=== PATIENT | male | born 1995 | race Hispanic/Latino ===

== ENCOUNTER 2022-11-28 00:58 | Emergency (ER) | payer BC, OTHER ==
--- OUTSIDE RECORDS SUMMARY | 2022-11-28 01:02 | XMS REPORT | Continuity of Care Document ---
:1995 Author Organization [facility] t Address [address] [place] [address] Care Team Providers Name Role Phone Arnold Bryant Attending Clinician Unavailable MAGNO_LUCILLE Attending Clinician Unavailable URIEL Admitting Clinician Unavailable Problems This patient has no known problems. Allergies, Adverse Reactions, Alerts This patient has no known allergies or adverse reactions. Medications This patient has no known medications. Procedures This patient has no known procedures. Encounters Start End Encounter Admission Attending Care Care Encounter Source Date/Time Date/Time Type Type Clinicians Facility Department ID 2022-10-16 Outpatient Bryant, [facility] [id number] Common 08:05:00 Arnold [facility] [facility] 2021-11-20 Outpatient Bryant, [facility] [id number] Common 14:20:24 Arnold [address] [facility] 2021-11-20 Outpatient Bryant, [facility] [id number] Common 13:26:24 Arnold [facility] [facility] 2021-11-20 Outpatient Brynat, [facility] [id number] Common 11:35:07 Arnold [address] [facility] 2021-11-20 Outpatient Bryant, [facility] [id number] Common 11:34:54 Arnold [address] [facility] 2021-11-20 Outpatient Bryant, [facility] [id number] Common 11:31:30 Arnold [facility] [facility] 2022-05-07 2022-05-07 Outpatient MAGNO_JOSEPH [facility] [address] 05:52:00 05:52:[address] [facility] Program Results This patient has no known results.
[2022-11-28] MEDS ORDERED: ONDANSETRON 4 MG/2 ML VIAL ONE (01:44)
[2022-11-28] MEDS ORDERED: NA CHLORIDE 0.9% 1,000 ML ONE (01:44)
[2022-11-28 02:15] LABS: Absolute Lymphocytes (CBC) 1.9 K/uL (0.7-4.9); Hematocrit 45.2 % (39.6-49.0); Lymphocytes % 15.4 % (15.3-44.8); MCV 86.3 fL (80-100); MPV 7.9 fL (7.6-11.3); RBC Red Blood Cell Count 5.24 M/uL (4.33-5.43)
[2022-11-28 02:40] LABS: Albumin 4.1 g/dL (3.4-5.0); Bilirubin Total 0.4 mg/dL (0.2-1.0); Magnesium 2.3 mg/dL (1.6-2.4); Potassium 4.1 mmol/L (3.5-5.1); Protein, Total 8.2 g/dL (6.4-8.2); Troponin High Sensitivity 6.5 pg/mL (<58.9)
--- NOTE | 2022-11-28 02:59 | EDPHYS ---
Physician Documentation [facility] Name: Roberto Delatorre Age: 26 yrs Sex: Male : 1995 Arrival Date: 11/28/2022 Time: 01:15 Bed 20 Private MD: ED Physician Agustin Rodriges HPI: 11/28 02:22 This 26 yrs old Male presents to ER via EMS with complaints of Fall Injury. rt 02:22 Patient presents to the ED with a syncopal event. Patient states that he was not rt feeling well earlier today, feeling off. He states that he felt that his heart was beating fast. He had nausea. The patient woke up to take a shower, he had a syncopal event in the shower, had a loss of consciousness of about 30 seconds. The patient states that he does not know if he hit his head or not but did have some mild head pain is now resolved. He denies other acute complaints at this time including chest pain. Symptoms are moderate in severity, no other aggravating or alleviating factors.. Historical: - Allergies: 01:21 No Known Allergies; ha1 - Home Meds: 01:21 Cyclobenzaprine Oral [Active]; Fioricet Oral [Active]; Hydroxyzine Oral [Active]; ha1 Lexapro Oral [Active]; sertraline oral [Active]; - PMHx: 01:21 Seizure; Anxiety; ha1 - Immunization history:: Adult Immunizations up to date. - Social history:: Smoking status: unknown. - Immunization history: Last tetanus immunization: unknown. - Family history:: not pertinent. ROS: 02:22 Constitutional: Negative for fever, chills, and weight loss, Cardiovascular: Negative rt for chest pain, palpitations, and edema, Respiratory: Negative for shortness of breath, cough, wheezing, and pleuritic chest pain, Abdomen/GI: Negative for abdominal pain, nausea, vomiting, diarrhea, and constipation, MS/Extremity: Negative for injury and deformity, Skin: Negative for injury, rash, and discoloration, Psych: Negative for depression, anxiety, suicide ideation, homicidal ideation, and hallucinations. 02:22 Abdomen/GI: Positive for vomiting, Negative for abdominal pain. 02:22 Neuro: Positive for syncope, Negative for altered mental status. Exam: 02:22 Constitutional: This is a well developed, well nourished patient who is awake, alert, rt and in no acute distress. Head/Face: Normocephalic, atraumatic. Chest/axilla: Normal chest wall appearance and motion. Nontender with no deformity. No lesions are appreciated. Cardiovascular: Regular rate and rhythm with a normal S1 and S2. No gallops, murmurs, or rubs. Normal PMI, no JVD. No pulse deficits. Respiratory: Lungs have equal breath sounds bilaterally, clear to auscultation and percussion. No rales, rhonchi or wheezes noted. No increased work of breathing, no retractions or nasal flaring. Abdomen/GI: Soft, non-tender, with normal bowel sounds. No distension or tympany. No guarding or rebound. No evidence of tenderness throughout. Skin: Warm, dry with normal turgor. Normal color with no rashes, no lesions, and no evidence of cellulitis. MS/ Extremity: Pulses equal, no cyanosis. Neurovascular intact. Full, normal range of motion. Neuro: Awake and alert, GCS 15, oriented to person, place, time, and situation. Cranial nerves II-XII grossly intact. Motor strength 5/5 in all extremities. Sensory grossly intact. Cerebellar exam normal. Normal gait. Psych: Awake, alert, with orientation to person, place and time. Behavior, mood, and affect are within normal limits. 03:00 ECG was reviewed by the Attending Physician. rt Vital Signs: 01:15 BP 114 / 82; Pulse 97; Resp 19 S; Pulse Ox 98% on R/A; ha1 01:16 BP 114 / 82; Pulse 97; Resp 19; Temp 98.3; Pulse Ox 98% on R/A; Weight 81.19 kg; Height ha1 5 ft. 6 in. (167.64 cm); Pain 3/10; 02:15 BP 118 / 75; Pulse 98; Resp 17 S; Pulse Ox 98% on R/A; ha1 03:00 BP 123 / 77; Pulse 87; Resp 18 S; Pulse Ox 97% on R/A; ha1 01:16 Body Mass Index 28.89 (81.19 kg, 167.64 cm) ha1 [place] Coma Score: 01:15 Eye Response: spontaneous(4). Verbal Response: oriented(5). Motor Response: obeys ha1 commands(6). Total: 15. Trauma Score (Adult): 01:15 Eye Response: spontaneous(1); Verbal Response: oriented(1); Motor Response: obeys ha1 commands(2); Systolic BP: > 89 mm Hg(4); Respiratory Rate: 10 to 29 per min(4); [place] Score: 15; Trauma Score: 12 MDM: 01:15 Patient medically screened. rt 03:00 Differential diagnosis: closed head injury, Syncope, seizure. Data reviewed: vital rt signs, nurses notes, lab test result(s), EKG, radiologic studies. I considered the following discharge prescriptions or medication management in the emergency department Medications were administered in the Emergency Department. See MAR. Independent interpretation of the following test(s) in the Emergency Department CT Scan: My interpretation is No head bleed. Care significantly affected by the following chronic conditions: Seizure disorder. Response to treatment: the patient's symptoms have markedly improved after treatment. 11/28 01:25 Order name: CBC with Diff; Complete Time: 02:21 rt 11/28 01:25 Order name: CMP; Complete Time: 02:50 rt 11/28 01:25 Order name: Troponin High Sensitivity; Complete Time: 02:50 rt 11/28 01:25 Order name: Magnesium; Complete Time: 02:50 rt 11/28 01:25 Order name: CT Head Brain wo Cont rt 11/28 01:25 Order name: Chest Single View XRAY rt 11/28 01:25 Order name: EKG; Complete Time: 01:26 rt 11/28 01:25 Order name: EKG - Nurse/Tech; Complete Time: 02:46 rt EC:00 Rate is 90 beats/min. Rhythm is regular, Normal Sinus Rhythm with No ectopy. QRS Lexa rt is Normal. ND interval is normal. QRS interval is normal. QT interval is normal. No Q waves. T waves are Normal. No ST changes noted. Interpreted by me. Administered Medications: 01:45 Drug: NS 0.9% 1000 ml Route: IV; Rate: 1 bolus; Site: right antecubital; ha1 03:00 Follow up: Response: No adverse reaction; IV Status: Completed infusion; IV Intake: ha1 1000ml 01:46 Drug: Zofran (Ondansetron) 4 mg Route: IVP; Site: right antecubital; ha1 02:00 Follow up: Response: No adverse reaction; Nausea is decreased ha1 Disposition Summary: 11/28/22 02:58 Discharge Ordered Location: Home rt Problem: new rt Symptoms: have improved rt Condition: Stable rt Diagnosis - Syncope rt - Unspecified injury of head, initial encounter rt Followup: rt - With: Private Physician - When: 2 - 3 days - Reason: Discharge Instructions: - Discharge Summary Sheet rt - Syncope rt Forms: - Medication Reconciliation Form rt - Thank You Letter rt - Antibiotic Education rt - Prescription Opioid Use rt Signatures: Dispatcher [employer] Elayne Vasquez RN RN ha1 Agustin Rodriges MD MD rt Corrections: (The following items were deleted from the chart) 01:24 01:21 PMHx: None; ha1 ha1
--- NOTE | 2022-11-28 02:59 | ER ---
Nurse's Notes [facility] Name: Roberto Delatorre Age: 26 yrs Sex: Male : 1995 Arrival Date: 11/28/2022 Time: 01:15 Bed 20 Private MD: Diagnosis: Syncope;Unspecified injury of head, initial encounter Presentation: 11/28 01:15 Care prior to arrival: None. Mechanism of Injury: Fall bathtub. Trauma event details: ha1 Injury occurred: November 28, 2022. 01:16 Chief complaint: EMS states: his girl friend called because he fell while in the 1 bathtub. girl friend reports that he loss consciousness for few minutes. he reports felling nausea and no recollection of event. Coronavirus screen: Vaccine status: Patient reports being unvaccinated. Ebola Screen: No symptoms or risks identified at this time. Initial Sepsis Screen: Does the patient meet any 2 criteria? No. Patient's initial sepsis screen is negative. Does the patient have a suspected source of infection? No. Patient's initial sepsis screen is negative. Risk Assessment: Do you want to hurt yourself or someone else? Patient reports no desire to harm self or others. Onset of symptoms was November 28, 2022. 01:16 Method Of Arrival: EMS: [facility] 01:16 Acuity: ANNAMARIE 3 1 Triage Assessment: 01:15 General: Appears comfortable, Behavior is calm, cooperative. Pain: Complains of pain in ha1 head Pain does not radiate. Pain currently is 3 out of 10 on a pain scale. Quality of pain is described as pressure, Pain began 3 hours ago. Is continuous. EENT: No signs and/or symptoms were reported regarding the EENT system. Neuro: Level of Consciousness is awake, alert, obeys commands, Oriented to person, place, time, situation. Cardiovascular: Capillary refill < 3 seconds Patient's skin is warm and dry. Respiratory: Airway is patent Respiratory effort is even, unlabored, Respiratory pattern is regular, symmetrical. GI: Abdomen is flat, non-distended, Bowel sounds present X 4 quads. Reports nausea. : No signs and/or symptoms were reported regarding the genitourinary system. Derm: Skin is pink, warm \T\ dry. Musculoskeletal: Circulation, motion, and sensation intact. Range of motion: intact in all extremities. 01:15 Injury Description: Head injury sustained to right samaritan is closed, had loss of ha1 consciousness. Trauma Activation: Physician: ED Physician; Name: Zahira; Notified At: ; Arrived At: Physician: General Surgeon; Name: ; Notified At: ; Arrived At: Physician: Radiology; Name: ; Notified At: ; Arrived At: Physician: Respiratory; Name: ; Notified At: ; Arrived At: Physician: Lab; Name: ; Notified At: ; Arrived At: Historical: - Allergies: 01:21 No Known Allergies; ha1 - Home Meds: :21 Cyclobenzaprine Oral [Active]; Fioricet Oral [Active]; Hydroxyzine Oral [Active]; ha1 Lexapro Oral [Active]; sertraline oral [Active]; - PMHx: : Seizure; Anxiety; ha1 - Immunization history:: Adult Immunizations up to date. - Social history:: Smoking status: unknown. - Immunization history: Last tetanus immunization: unknown. - Family history:: not pertinent. Screenin:15 [facility] ED Fall Risk Assessment (Adult) History of falling in the last 3 months, ha1 including since admission No falls in past 3 months (0 pts) Confusion or Disorientation No (0 pts) Intoxicated or Sedated No (0 pts) Impaired Gait No (0 pts) Mobility Assist Device Used No (0 pt) Altered Elimination No (0 pt) Score/Fall Risk Level 0 - 2 = Low Risk Oriented to surroundings, Maintained a safe environment, Educated pt \T\ family on fall prevention, incl call for assistance when getting out of bed, Hourly rounding (assess needs \T\ fall precautionary measures) done. Abuse screen: Denies threats or abuse. Denies injuries from another. Nutritional screening: No deficits noted. Tuberculosis screening: No symptoms or risk factors identified. Primary Survey: 01:15 NO uncontrolled hemorrhage observed. Breathing/Chest: Respiratory effort: spontaneous, ha1 Breath sounds: clear, bilaterally. Circulation: No external hemorrhage present. Regular and strong central pulse, skin warm/dry/normal color. Disability Pupils are equal, round, reactive to light and accommodation. Client is alert. Exposure/Environment: All clothing and personal items were removed. Forensic evidence collection is not deemed to be indicated at this time. Items placed in patient belonging bag. 02:00 Reassessment Breathing: Spontaneous respiratory effort, equal unlabored respirations, ha1 breath sounds clear bilaterally, regular pattern with symmetrical chest rise and fall. Assessment: 01:15 Reassessment: see triage assessment. ha1 01:22 Reassessment: going to CT. ha1 01:34 Reassessment: Patient and/or family updated on plan of care and expected duration. Pain ha1 level reassessed. Patient is alert, oriented x 3, equal unlabored respirations, skin warm/dry/pink. back from CT. Vital Signs: 01:15 BP 114 / 82; Pulse 97; Resp 19 S; Pulse Ox 98% on R/A; ha1 01:16 BP 114 / 82; Pulse 97; Resp 19; Temp 98.3; Pulse Ox 98% on R/A; Weight 81.19 kg; Height ha1 5 ft. 6 in. (167.64 cm); Pain 3/10; 02:15 BP 118 / 75; Pulse 98; Resp 17 S; Pulse Ox 98% on R/A; ha1 03:00 BP 123 / 77; Pulse 87; Resp 18 S; Pulse Ox 97% on R/A; ha1 01:16 Body Mass Index 28.89 (81.19 kg, 167.64 cm) ha1 [place] Coma Score: 01:15 Eye Response: spontaneous(4). Verbal Response: oriented(5). Motor Response: obeys ha1 commands(6). Total: 15. Trauma Score (Adult): 01:15 Eye Response: spontaneous(1); Verbal Response: oriented(1); Motor Response: obeys ha1 commands(2); Systolic BP: > 89 mm Hg(4); Respiratory Rate: 10 to 29 per min(4); [place] Score: 15; Trauma Score: 12 ED Course: 01:15 Patient arrived in ED. ha1 01:15 Agustin Rodriges MD is Attending Physician. rt 01:15 Patient has correct armband on for positive identification. Placed in gown. Bed in low ha1 position. Call light in reach. Side rails up X 1. Adult w/ patient. 01:15 Patient maintains SpO2 saturation greater than 95% on room air. ha1 01:16 Elayne Bullock RN is Primary Nurse. ha1 01:21 Triage completed. ha1 01:29 Arm band placed on right wrist. ha1 01:31 Thermoregulation: warm blanket given to patient. ha1 01:40 Inserted saline lock: 20 gauge in right antecubital area, using aseptic technique. ha1 Blood collected. 01:49 CT Head Brain wo Cont In Process Unspecified. EDMS 01:59 Magnesium Sent. ha1 01:59 Troponin High Sensitivity Sent. ha1 01:59 CMP Sent. ha1 01:59 CBC with Diff Sent. ha1 02:15 Chest Single View XRAY In Process Unspecified. EDMS 03:18 No provider procedures requiring assistance completed. IV discontinued, intact, ha1 bleeding controlled, No redness/swelling at site. Pressure dressing applied. Administered Medications: 01:45 Drug: NS 0.9% 1000 ml Route: IV; Rate: 1 bolus; Site: right antecubital; ha1 03:00 Follow up: Response: No adverse reaction; IV Status: Completed infusion; IV Intake: ha1 1000ml 01:46 Drug: Zofran (Ondansetron) 4 mg Route: IVP; Site: right antecubital; ha1 02:00 Follow up: Response: No adverse reaction; Nausea is decreased ha1 Medication: 03:18 VIS not applicable for this client. ha1 Intake: 03:00 IV: 1000ml; Total: 1000ml. ha1 03:22 IV: 1000ml (IV Fluid); Total: 2000ml. ha1 Output: 03:22 Urine: 220ml (Voided); Total: 220ml. ha1 Outcome: 02:58 Discharge ordered by MD. rt 03:19 Discharged to home ambulatory, with family. ha1 03:19 Condition: stable 03:19 Discharge instructions given to patient, family, Instructed on discharge instructions, follow up and referral plans. Demonstrated understanding of instructions, follow-up care. 03:19 Patient's length of stay in the Emergency Department was greater than 2 hours. ha1 03:26 Patient left the ED. ha1 Signatures: Dispatcher [employer] Elayne Vasquez RN RN ha1 Agustin Rodriges MD MD rt Corrections: (The following items were deleted from the chart) 01:24 01:21 PMHx: None; ha1 ha1
[2022-11-28 03:32] VITALS: TEMP 98.3
[2022-11-28 03:34] VITALS: BP 123/77; O2SAT 97
--- NOTE | 2022-11-28 15:13 | RAD REPORT ---
EXAM DESCRIPTION: Head Brain Wo Cont CLINICAL HISTORY: 26 years Male head trauma COMPARISON: None TECHNIQUE: Contiguous axial images of the brain were obtained without the administration of intraven ous contrast.This exam was performed according to our departmental dose-optimization program which in cludes use of Automated Exposure Control, adjustment of the mA and/or kV according to patient size an d/or use of iterative reconstruction technique. DLP: 866 mGy*cm FINDINGS: Brain: No acute intracranial hemorrhage. No extra-axial collection. No mass effect or jin iation. Ventricles: Within normal limits in size. Globes and orbits: No acute abnormality. Bones: No acute osseous finding Paranasal sinuses: Paranasal sinuses are clear. Mastoid air cells: Well pneumatized. Soft tissues: Within normal limits IMPRESSION: No acute intracranial abnormality. Electronically signed by: Ken Jimenez DO 11/28/2022 1:54 AM RESEARCH ASSISTANT Due to temporary technical issues with the PACS/Fluency reporting system, reports are being signed by the in house radiologists without review as a courtesy to insure prompt reporting. The interpreting radiologist is fully responsible for the content of the report.
--- NOTE | 2022-11-28 15:23 | RAD REPORT ---
EXAM DESCRIPTION: Chest Single View CLINICAL HISTORY: 26 years Male syncope COMPARISON: None FINDINGS: Lung volumes diminished. Bronchovascular crowding. Cardiac silhouette is normal. No pneumothorax. No large pleural effusion. No focal consolidation. Minimal right basilar reticular opacities, likely atelectasis. No acute bony finding. IMPRESSION: 1. No focal consolidation. 2. Minimal right basilar reticular opacities, likely atelectasis. Can pursue short-term follow-up t o assess for interval change. Electronically signed by: Clarisa Moon MD 11/28/2022 2:19 AM SPECIALTY COOK Due to temporary technical issues with the PACS/Fluency reporting system, reports are being signed by the in house radiologists without review as a courtesy to insure prompt reporting. The interpreting radiologist is fully responsible for the content of the report.
== END 2022-11-28 03:26 | disposition home or self-care (01) ==
LOC: ER 00:58
DX: R55 Syncope and collapse (principal); S09.90XA Unspecified injury of head, initial encounter; R11.10 Vomiting, unspecified; F41.9 Anxiety disorder, unspecified
CPT/HCPCS: 96361; 85025; 36415; 83735; 84484; 80053; 70450; 71045; 96374; 99284; J7030; J2405; 93005

== ENCOUNTER 2024-07-06 11:03 | Emergency (ER) | payer BC ==
--- OUTSIDE RECORDS SUMMARY | 2024-07-06 11:06 | XMS REPORT | Continuity of Care Document ---
Author Name Unknown Address [address] [id number] [facility] [address] [place] [address] Care Team Providers Care Tank Furnace Operator Name Role Phone Arnold Bryant Attending Clinician Unavailable AMBKEVIN_LUCILLE Attending Clinician Unavailable AMBREEN_LUCILLE Admitting Clinician Unavailable Encounters Start Date/Time End Date/Time Encounter Type Admission Type Attending Clinicians Care Facility Care Department Encounter ID Source 2022-10-16 08:05[id number] [facility] 2021-11-20 14:20:24 [facility] [id number] [facility] 2021-11-20 13:26:24 Outpatient Arnold Bryant [facility] [id number] [facility] 2021-11-20 11:35:07 Outpatient Arnold Bryant [facility] [id number] [facility] 2021-11-20 11:34:54 [facility] [id number] [facility] 2021-11-20 11:31:30 [facility] [id number] [facility] 2022-05-07 05:52:00 2022-05-07 05:52:00 Outpatient AMBREEN_JOSEPH JEONG MOSHANIQUA [facility] [id number] [place] [address] [facility]
[2024-07-06] MEDS ORDERED: IBUPROFEN 400 MG TAB ONE (12:17)
--- NOTE | 2024-07-06 13:53 | RAD REPORT ---
EXAM DESCRIPTION: RAD - Foot Left 3 View - 07/06/2024 1:34 pm CLINICAL HISTORY: Left Foot pain FINDINGS: Mildly to moderately displaced oblique fracture fifth proximal phalanx No dislocation is seen
[2024-07-06] MEDS ORDERED: HYDROCODONE/APAP 5/325 MG TAB ONE (14:05)
--- NOTE | 2024-07-06 14:36 | EDPHYS ---
Physician Documentation [facility] Name: Roberto Delatorre Age: 28 yrs Sex: Male : 1995 Arrival Date: 07/06/2024 Time: 11:03 Bed DX2 Private MD: ED Physician Melinda Aceves HPI: 07/06 11:59 This 28 yrs old Male presents to ER via Wheelchair with complaints of Toe sd2 Injury. 11:59 28-year-old male presents with chief complaint of left pinky toe injury. He reports he sd2 was trying to jump over a 2 foot wall in between his living and dining room area when he smashed the area into the wall. He reports pain to the area. No obvious deformity or swelling that he has noted so far. No medication taken prior to arrival.. Historical: - Allergies: 11:31 No Known Allergies; iw - PMHx: 11:24 Anxiety; Seizure; iw - PSHx: 11:31 None; iw - Immunization history:: Adult Immunizations not up to date. - Infectious Disease History:: Denies. - Social history:: Smoking status: Patient denies any tobacco usage or history of. ROS: 11:59 Constitutional: Negative for fever, chills, and weight loss, MS/Extremity: Positive for sd2 injury and negative for deformity, Skin: Negative for injury, rash, and discoloration, Neuro: Negative for headache, numbness and tingling. Exam: 11:59 Constitutional: This is a well developed, well nourished patient who is awake, alert, sd2 and in no acute distress. Head/Face: Normocephalic, atraumatic. Skin: Warm, dry with normal turgor. Normal color with no rashes, no lesions, and no evidence of cellulitis. MS/ Extremity: Pulses equal, no cyanosis. Neurovascular intact. Full, normal range of motion aside from limited ROM of L 5th digit 2/2 pain, TTP of L 5th digit and metatarsal area, no obvious deformity or swelling Vital Signs: 11:32 Resp 16; Temp 97.2; Weight 83.91 kg; Height 5 ft. 6 in. ; Pain 5/10; iw 11:58 BP 131 / 81; Pulse 74; Pulse Ox 100% on R/A; iw 11:32 Body Mass Index 29.86 (83.91 kg, 167.64 cm) iw 11:32 Pain Scale: Adult iw MDM: 11:59 Differential Diagnosis fracture, contusion, dislocation among others. Data reviewed: sd2 vital signs, nurses notes, radiologic studies. I considered the following discharge prescriptions or medication management in the emergency department Medications were administered in the Emergency Department. See DEC. 12:15 Patient medically screened. sd2 14:34 Counseling: I had a detailed discussion with the patient and/or guardian regarding the sd2 historical points, exam findings, and any diagnostic results supporting the discharge/admit diagnosis, radiology results, the need for outpatient follow up, to return to the emergency department if symptoms worsen or persist or if there are any questions or concerns that arise at home. Response to treatment: the patient's symptoms have markedly improved after treatment. ED course: Fracture present. Pt had relocated the toe back into better alignment already since the x-ray was performed by accident. Therefore, a reduction was not performed. Toe bre taped and pt given ortho shoe and crutches with plan for follow up. Verbalizes understanding of discharge plan and strict return precautions. . 07/06 11:59 Order name: XRAY Foot LEFT 3 View; Complete Time: 13:55 sd2 07/06 11:59 Order name: Ice pack; Complete Time: 14:43 sd2 07/06 13:56 Order name: Ortho shoe; Complete Time: 14:43 sd2 07/06 14:02 Order name: Crutches; Complete Time: 14:43 sd2 Administered Medications: 12:38 Drug: Ibuprofen PO 800 mg PO once Route: PO; iw 15:12 Follow up: Response: No adverse reaction; Pain is decreased ll1 14:07 Drug: HYDROcodone-acetaminophen PO 5 mg-325 mg 1 tabs PO once {Note: pain 3/10 RASS 0.} ll1 Route: PO; 15:12 Follow up: Response: No adverse reaction; Pain is decreased; RASS: Alert and Calm (0) ll1 Disposition Summary: 07/06/24 14:36 Discharge Ordered Problem: new sd2 Symptoms: have improved sd2 Condition: Stable sd2 Diagnosis - Closed fracture of left fifth toe, initial encounter sd2 Followup: sd2 - With: Private Physician - When: 2 - 3 days - Reason: Recheck today's complaints, Continuance of care, Re-evaluation by your physician Followup: sd2 - With: Antione Juarez MD - When: 1 week - Reason: Recheck today's complaints, Continuance of care, Re-evaluation by your physician Discharge Instructions: - Discharge Summary Sheet sd2 - Toe Fracture sd2 - Toe Fracture Rehab sd2 Forms: - Medication Reconciliation Form sd2 - Antibiotic Education sd2 - Prescription Opioid Use sd2 - Patient Portal Instructions sd2 - Leadership Thank You Letter sd2 Prescriptions: - Ibuprofen 800 mg Oral tablet - take 1 tablet ORAL route every 8 hours As needed take with food; 15 tablet; sd2 Refills: 0, Product Selection Permitted Signatures: Dispatcher [employer] Gloria Martinez RN El Munroe RN RN ll1 Melinda Aceves MD MD sd2 Corrections: (The following items were deleted from the chart) 12:00 12:00 Foot Left 3 View+RAD.RAD.BRZ ordered. EDWY DAGOBERTO
--- NOTE | 2024-07-06 14:36 | ER ---
Nurse's Notes [facility] Name: Roberto Delatorre Age: 28 yrs Sex: Male : 1995 Arrival Date: 07/06/2024 Time: 11:03 Bed DX2 Private MD: Diagnosis: Closed fracture of left fifth toe, initial encounter Presentation: 07/06 11:20 Coronavirus screen: At this time, the client does not indicate any symptoms associated iw with coronavirus-19. Ebola Screen: No symptoms or risks identified at this time. Risk Assessment: Do you want to hurt yourself or someone else? Patient reports no desire to harm self or others. Onset of symptoms was June 29, 2024. 11:30 Chief complaint: Patient states: was jumping over a small wall and caught his left iw foot, thinks he broke hie left 4th and 5th toe. 11:30 Acuity: ANNAMARIE 4 iw 11:30 Method Of Arrival: Wheelchair iw 11:32 Initial Sepsis Screen: Does the patient meet any 2 criteria? No. Patient's initial iw sepsis screen is negative. Does the patient have a suspected source of infection? No. Patient's initial sepsis screen is negative. Historical: - Allergies: 11:31 No Known Allergies; iw - PMHx: 11:24 Anxiety; Seizure; iw - PSHx: 11:31 None; iw - Immunization history:: Adult Immunizations not up to date. - Infectious Disease History:: Denies. - Social history:: Smoking status: Patient denies any tobacco usage or history of. Screenin:58 [facility] ED Fall Risk Assessment (Adult) History of falling in the last 3 months, ll1 including since admission No falls in past 3 months (0 pts) Confusion or Disorientation No (0 pts) Intoxicated or Sedated No (0 pts) Impaired Gait Yes (1 pt) Mobility Assist Device Used Yes (1 pt) Altered Elimination No (0 pt) Score/Fall Risk Level 0 - 2 = Low Risk Maintained a safe environment, Hourly rounding (assess needs \T\ fall precautionary measures) done. Abuse screen: Denies threats or abuse. Nutritional screening: No deficits noted. Tuberculosis screening: No symptoms or risk factors identified. Assessment: 14:09 General: Appears uncomfortable, Behavior is calm, cooperative, appropriate for age. ll1 Pain: Complains of pain in left foot Pain currently is 3 out of 10 on a pain scale. Quality of pain is described as aching. Musculoskeletal: Circulation, motion, and sensation intact. Capillary refill < 3 seconds, in left toes. Reports pain in left foot. Injury Description: Bruise. 14:58 Reassessment: No changes from previously documented assessment. Patient and/or family ll1 updated on plan of care and expected duration. Pain level reassessed. Patient is alert, oriented x 3, equal unlabored respirations, skin warm/dry/pink. Patient states feeling better. Vital Signs: 11:32 Resp 16; Temp 97.2; Weight 83.91 kg; Height 5 ft. 6 in. ; Pain 5/10; iw 11:58 BP 131 / 81; Pulse 74; Pulse Ox 100% on R/A; iw 11:32 Body Mass Index 29.86 (83.91 kg, 167.64 cm) iw 11:32 Pain Scale: Adult iw ED Course: 11:05 Patient arrived in ED. mr 11:09 Melinda Aceves MD is Attending Physician. sd2 11:22 Triage completed. iw 11:31 Arm band placed on. iw 13:35 XRAY Foot LEFT 3 View In Process Unspecified. EDMS 14:38 Antione Juarez MD is Referral Physician. sd2 14:58 No provider procedures requiring assistance completed. Patient did not have IV access ll1 during this emergency room visit. 15:11 Patient has correct armband on for positive identification. Provided Education on: ll1 return to ED for worsening symptoms. Administered Medications: 12:38 Drug: Ibuprofen PO 800 mg PO once Route: PO; iw 15:12 Follow up: Response: No adverse reaction; Pain is decreased ll1 14:07 Drug: HYDROcodone-acetaminophen PO 5 mg-325 mg 1 tabs PO once {Note: pain 3/10 RASS 0.} ll1 Route: PO; 15:12 Follow up: Response: No adverse reaction; Pain is decreased; RASS: Alert and Calm (0) ll1 Medication: 15:11 VIS not applicable for this client. ll1 Outcome: 14:36 Discharge ordered by . sd2 14:58 Patient left the ED. ll1 14:58 Discharged to home ambulatory, ll1 14:58 Condition: stable 14:58 Discharge instructions given to patient, family, Instructed on discharge instructions, follow up and referral plans. no driving heavy equipment, medication usage, Demonstrated understanding of instructions, follow-up care, medications, Prescriptions given X 1, s.o. driving him home Signatures: Dispatcher [employer] EDChacha Lion, Reg Reg Mckayla Kauffmanne, RN El Munroe RN RN ll1 Melinda Aceves MD MD sd2 Corrections: (The following items were deleted from the chart) 11: Chief complaint: Parent and/or Guardian states: has an infected right thumb, has iw been on antibiotics since Thursday , infection started last week thu or 11: Initial Sepsis Screen: Does the patient meet any 2 criteria? No. Patient's initial sepsis screen is negative. Does the patient have a suspected source of infection? No. Patient's initial sepsis screen is negative. 11: BP 106 / 91; Resp 18bpm; Pulse Ox 99% RA; Temp 97F; [facility] 11:20 Method Of Arrival: Ambulatory [facility] 11:20 Acuity: ANNAMARIE 3 [facility]
[2024-07-06 15:12] VITALS: TEMP 97.2
[2024-07-06 15:13] VITALS: BP 131/81; O2SAT 100
== END 2024-07-06 14:58 | disposition home or self-care (01) ==
LOC: ER 11:03
DX: S92.502A Displaced unspecified fracture of left lesser toe(s), initial encounter for closed fracture (principal)
CPT/HCPCS: 99283